=== PATIENT | male | born 1955 | race Two or more races ===

== ENCOUNTER 2023-06-23 09:01 | Day surgery (SDC) | payer OTHER ==
[~2023-06-23] VITALS: Ht 170.2 cm; Wt 105.2 kg
[~2023-06-23 09:01] MED LIST: ASPI81CH59 PO; ATOR20TA PO
[2023-06-23] MEDS ORDERED: diphenhdrAMINE HCL 50 MG/1 ML VL ONE (09:09)
[2023-06-23] MEDS ORDERED: SODIUM CHLORIDE LOCK 10 ML ONE (09:09)
[2023-06-23 09:32] VITALS: O2SAT 98
[2023-06-23] MEDS: fentaNYL CITRATE 100 MCG/2 ML VL ONE ×2 (09:34→09:37)
[2023-06-23] MEDS: MIDAZOLAM HCL 5 MG/ML-1ML VIAL ONE ×2 (09:34→09:37)
[2023-06-23 09:50] VITALS: TEMP 97.5; O2SAT 95
[2023-06-23 10:25] VITALS: BP 118/79; PULSE 66; RESP 16; O2SAT 94
== END 2023-06-23 10:30 | disposition home or self-care (01) ==
LOC: GI 09:01
PROVIDERS: ATTEND Internal Medicine Gastroenterology
DX: Z12.11 Encounter for screening for malignant neoplasm of colon (principal); K57.30 Diverticulosis of large intestine without perforation or abscess without bleeding; I10 Essential (primary) hypertension; E78.5 Hyperlipidemia, unspecified; Z79.899 Other long term (current) drug therapy; Z98.890 Other specified postprocedural states; Z90.49 Acquired absence of other specified parts of digestive tract
CPT/HCPCS: 45385; J1200; J2250; J3010; J7030; 99152; 99153